=== PATIENT | male | born 1955 | race Caucasian/White ===

== ENCOUNTER → 2018-12-06 07:01 | Outpatient (CLI) | payer MEDICARE ==
[2015-11-22 11:36] VITALS: BMI 32.9
[~2018-12-06 07:01] MED LIST: IPRAT-ALBUT 0.5-3 ML INH; PREDNISONE10 MG PO; VIBRAMYCIN 100100 MG PO; ZITHROMAX250 MG PO
== END | disposition home or self-care (01) ==
LOC: D.US 07:01
PROVIDERS: ATTEND Family Medicine
DX: R10.9 Unspecified abdominal pain (principal)

== ENCOUNTER → 2019-05-16 13:07 | Outpatient (CLI) | payer MEDICARE ==
[2015-11-22 11:36] VITALS: BMI 32.9
--- NOTE | 2019-05-22 08:48 | ST ---
PATIENT:MARIA ELENA HILL MEDICAL RECORD: [id number] SEX: M LOCATION:[facility] ORDER #: ADMISSION DATE: 05/16/19 AGE OF PATIENT: 63 REFERRING PHYSICIAN: INTERPRETING PHYSICIAN: HUBERT ALEJANDRO MD DATE OF SERVICE: 05/16/2019 Treadmill stress test Baseline ECG is normal. Exercised for 6 minutes 9 seconds on Brandon protocol, maximum heart rate 136 beats per minute, greater than 100% maximum predicted. No ECG changes of ischemia. No symptoms of ischemia. Fair exercise tolerance for age. No arrhythmias were noted. TRANSINT:[id number] Voice Confirmation ID: [id number] DOCUMENT ID: [id number] HUBERT ALEJANDRO MD at 0848 CC: [id number] DICTATION DATE: 05/17/191401 AUTHORIZATION NURSE: 05/17/192103 DEP CLI 05/16/19 [id number] [place] [address]
--- NOTE | 2019-05-23 11:17 | EC ---
PATIENT:MARIA ELENA HILL DATE OF SERVICE: 05/16/19 SEX: M MEDICAL RECORD: [id number] DATE OF : 59 [facility] AGE OF PATIENT: 64 ADMISSION DATE: 05/16/19 REFERRING PHYSICIAN: INTERPRETING PHYSICIAN: RITIKA KNUTSON MD ECHOCARDIOGRAM REPORT ECHO CHARGES 4 ECHO COMPLETE Date: 05/16/19 CLINICAL DIAGNOSIS: HEART MURMUR, DYSPNEA ON EXERTION ECHOCARDIOGRAPHIC MEASUREMENTS (adult normal given) AC root (d.<3.7cm) 3.3 cm LV Septum d (<1.2 cm> 1.2 cm Valve Excursion 1.6 cm LV Septum (systole) 1.7 cm Left Atria (s.<4.0cm> 3.9 cm LVPW d(<1.2cm) 1.5 cm RV (d.<2.3cm) 3.5 cm LVPW (sytole) 1.9 cm LV diastole(<5.6CM) 4.6 cm MV E-F(>70mm/sec) cm LV systole 2.8 cm LVOT Diameter 2.1 cm MV exc.(>10mm) 1.5 cm Est.ejection fraction (50-75%) % DOPPLER: LVIT cm/sec A 75.0 cm/sec E 87.0 cm/sec LA cm/sec RVSP 18 mmHg LVOT 133 cm/sec AOP1/2T m/s Asc. Ao 150 cm/sec RVOT 105 cm/sec RA cm/sec PA 133 cm/sec AV Gradient Peak 9.02 mmHg AV Mean 4.67 mmHg AV Area 3.4 cm MV Gradient Peak 3.32 mmHg MV Mean 1.04 mmHg MV Area cm COMMENTS: Metal Dealer: 2 ALEXANDR ROLAND Attendance Clerk: 3 Dr. Guardado TAPE# PACS Pericardial Effusion N DATE OF SERVICE: ECHOCARDIOGRAM FINDINGS: 1. Left ventricular chamber size is within normal limits. Left ventricular systolic function is normal. Overall ejection fraction estimated at 55%. 2. Left atrium, right atrium, and right ventricular chamber sizes are within normal limits. 3. Valvular structures have normal structure and motion. ECHOCARDIOGRAM REPORT [id number] MARIA ELENA HILL 4. Doppler interrogation reveals no significant valvular insufficiency or stenosis. Pulmonary systolic pressure is estimated at 18 mmHg. 5. No evidence of pericardial effusion or left ventricular thrombus. TRANSINT:[id number] Voice Confirmation ID: [id number] DOCUMENT ID: [id number] RITIKA KNUTSON MD at 1117 CC: [id number] DICTATION DATE: 05/22/19 1549 DRILLER MULTIPLE SPINDLE: 05/22/19 1840 DEP CLI 05/16/19 [place] [id number] [place] [id number]
== END | disposition home or self-care (01) ==
LOC: D.HCCECHO 13:07
PROVIDERS: ATTEND Internal Medicine Interventional Cardiology
DX: R01.1 Cardiac murmur, unspecified (principal); R06.09 Other forms of dyspnea